=== PATIENT | female | born 1955 | race Caucasian/White ===

== ENCOUNTER 2016-08-31 18:07 | Emergency (ER) | payer SELFPAY ==
[~2016-08-31] VITALS: Ht 170.2 cm; Wt 63.0 kg
[2016-08-31] MEDS ORDERED: DIAZ2 PO (18:25)
[2016-08-31] MEDS ORDERED: ACET-2247 PO (18:25)
[2016-08-31] MEDS ORDERED: HYDR-309 PO (18:25)
[2016-08-31] MEDS ORDERED: QUET25TA PO (18:25)
[2016-08-31 18:27] LABS: GLUCOSE,POINT OF CARE 118 MG/DL (70-110)
[2016-08-31] MEDS ORDERED: FLUMAZENIL 0.1 MG/ML 5 ML VIAL IVP ONE (18:30)
[2016-08-31 18:44] LABS: BASOPHILS # (AUTO) 0.04 K/uL (0.00-0.20); BASOPHILS % (AUTO) 0.3 % (0.0-2.0); EOSINOPHILS # (AUTO) 0.11 K/uL (0.00-0.70); EOSINOPHILS % (AUTO) 0.88 % (1.0-6.0); HEMATOCRIT 35.9 % (36-46); HEMOGLOBIN 12.1 g/dL (12.0-16.0); LYMPHOCYTES # (AUTO) 0.8 K/uL (1.0-4.8); LYMPHOCYTES % (AUTO) 6.5 % (22.0-44.0); MEAN CORPUSCULAR HGB CONC 33.6 G/dL (31.0-37.0); MEAN CORPUSCULAR VOLUME 92 fL (80-100); MONOCYTES # (AUTO) 0.4 K/uL (0.1-1.0); MONOCYTES % (AUTO) 2.9 % (2.0-9.0); NEUTROPHILS # (AUTO) 11.4 K/uL (1.8-7.7); PLATELET COUNT (AUTO) 214 K/uL (150-450); RED BLOOD CELL COUNT(AUTO) 3.89 MIL/uL (4.00-5.20); RED CELL DISTRIBUTION WIDTH 15.7 % (11.5-14.5); WHITE BLOOD COUNT (AUTO) 12.7 K/uL (4.5-11.0)
[2016-08-31 18:46] LABS: APPEARANCE,URINE CLEAR (CLEAR); GLUCOSE, URINE (UA) NEGATIVE (NEGATIVE); KETONES,URINE NEGATIVE (NEGATIVE); LEUKOCYTE ESTERASE ,URINE NEGATIVE (NEGATIVE); OCCULT BLOOD,URINE NEGATIVE (NEGATIVE); PROTEIN,URINE NEGATIVE (NEGATIVE)
[2016-08-31 18:50] LABS: NEUTROPHILS % (AUTO) 89.5 % (40.0-70.0)
[2016-08-31 18:50] LABS: ADD UA MICROSCOPIC NO
[2016-08-31 18:53] LABS: SALICYLATE 3.5 mg/dL (2.8-20.0)
[2016-08-31 18:54] LABS: ANION GAP 9 mmol/L (8-16); CALCIUM, TOTAL 8.1 mg/dL (8.8-10.5); CARBON DIOXIDE 28 mmol/L (22-29); CHLORIDE 104 mmol/L (98-107); CREATININE 0.85 mg/dL (0.60-1.30); GLOMERULAR FILTR. RATE CALC > 60 mL/min (>60); SODIUM SERUM 141 mmol/L (136-145); UREA NITROGEN, BLOOD 20 mg/dL (7-18)
[2016-08-31 19:02] LABS: AMMONIA 13 umol/L (11-32); LACTIC ACID 1.1 mmol/L (0.4-2.0)
[2016-08-31 19:03] LABS: TROPONIN I < 0.02 ng/mL (0.00-0.05)
[2016-08-31 19:05] LABS: B-TYPE NATRIURETIC PEPTIDE 30 pg/mL (0-100)
[2016-08-31 19:08] LABS: RBC MORPHOLOGY COMMENT ABNORMAL RBC MORPH
[2016-08-31 19:09] LABS: ACETAMINOPHEN < 2 mcg/mL (10-30); ALANINE AMINOTRANSFERASE 71 U/L (12-78); ALBUMIN 3.7 g/dL (3.4-5.0); ASPARTATE AMINOTRANSFERASE 30 U/L (15-37); BILIRUBIN,TOTAL 0.2 mg/dL (0.1-1.0); CREATINE KINASE, TOTAL 73 U/L (26-192)
[2016-08-31] MEDS ORDERED: ACETAMINOPHEN 325 MG TABLET PO PRN (21:30)
[2016-08-31 22:35] VITALS: BP 144/77
[2016-09-01] MEDS ORDERED: HEPARIN SODIUM,PORCINE 5,000 UNITS/ML VIAL SQ SCH
[2016-09-01] MEDS ORDERED: PANTOPRAZOLE SODIUM 40 MG DR TABLET PO SCH (09:00)
== END 2016-08-31 23:33 | disposition home or self-care (01) ==
LOC: EDBD 18:10 → EMS 18:10
DX: R41.82 Altered mental status, unspecified (principal); F13.20 Sedative, hypnotic or anxiolytic dependence, uncomplicated
CPT/HCPCS: 36415; 71010; 80053; 80307; 81003; 82140; 82550; 82962; 83605; 83880; 84484; 85025; 93005; 96374; 99291; G0480; G0481; J3490

== ENCOUNTER 2016-10-03 09:25 | Emergency (ER) | payer MEDICARE ==
[~2016-10-03] VITALS: Ht 165.1 cm; Wt 51.8 kg
[~2016-10-03 09:25] MED LIST: ACET-2247 PO; DIAZ2 PO; HYDR-309 PO; QUET25TA PO
[2016-10-03] MEDS ORDERED: DIPH25CA85 PO (09:45)
[2016-10-03 10:07] VITALS: BP 144/68
== END 2016-10-03 10:23 | disposition home or self-care (01) ==
LOC: EMS 09:26
DX: G47.00 Insomnia, unspecified (principal); F41.9 Anxiety disorder, unspecified; F32.9 Major depressive disorder, single episode, unspecified
CPT/HCPCS: 99283; 99284

== ENCOUNTER 2016-11-06 20:57 | Inpatient (IN) | payer MEDICARE ==
[~2016-11-06] VITALS: Ht 165.1 cm; Wt 56.9 kg
[~2016-11-06 20:57] MED LIST changes: +DIPH25CA85 PO
[2016-11-06] MEDS ORDERED: SODIUM CHLORIDE 0.9% 1,000 ML IV ONE (21:30)
[2016-11-06 21:32] LABS: BASOPHILS # (AUTO) 0.09 K/uL (0.00-0.20); BASOPHILS % (AUTO) 1.3 % (0.0-2.0); EOSINOPHILS # (AUTO) 0.23 K/uL (0.00-0.70); HEMATOCRIT 38.8 % (36-46); HEMOGLOBIN 12.8 g/dL (12.0-16.0); LYMPHOCYTES # (AUTO) 1.6 K/uL (1.0-4.8); LYMPHOCYTES % (AUTO) 21.8 % (22.0-44.0); MEAN CORPUSCULAR HEMOGLOBIN 30.8 pg (26.0-34.0); MEAN CORPUSCULAR HGB CONC 32.8 G/dL (31.0-37.0); MEAN CORPUSCULAR VOLUME 94 fL (80-100); MONOCYTES # (AUTO) 0.5 K/uL (0.1-1.0); MONOCYTES % (AUTO) 6.7 % (2.0-9.0); NEUTROPHILS # (AUTO) 4.8 K/uL (1.8-7.7); PLATELET COUNT (AUTO) 296 K/uL (150-450); RED BLOOD CELL COUNT(AUTO) 4.14 MIL/uL (4.00-5.20); RED CELL DISTRIBUTION WIDTH 14.9 % (11.5-14.5); WHITE BLOOD COUNT (AUTO) 7.2 K/uL (4.5-11.0)
[2016-11-06 21:33] LABS: ANION GAP 7 mmol/L (8-16); CALCIUM, TOTAL 9.2 mg/dL (8.8-10.5); CARBON DIOXIDE 30 mmol/L (22-29); CHLORIDE 100 mmol/L (98-107); CREATININE 1.11 mg/dL (0.60-1.30); GLOMERULAR FILTR. RATE CALC 50 mL/min (>60); SODIUM SERUM 137 mmol/L (136-145); UREA NITROGEN, BLOOD 18 mg/dL (7-18)
[2016-11-06 21:40] LABS: ALANINE AMINOTRANSFERASE 24 U/L (12-78); ALBUMIN 3.8 g/dL (3.4-5.0); ASPARTATE AMINOTRANSFERASE 13 U/L (15-37); BILIRUBIN,TOTAL 0.4 mg/dL (0.1-1.0)
[2016-11-06 21:44] LABS: SALICYLATE 3.4 mg/dL (2.8-20.0)
[2016-11-06 21:50] LABS: ACETAMINOPHEN < 2 mcg/mL (10-30)
[2016-11-06] MEDS ORDERED: GABA-533 PO (22:08)
[2016-11-06] MEDS ORDERED: AMIT25TA9 PO (22:08)
[2016-11-06] MEDS ORDERED: MELA3 PO (22:08)
[2016-11-06] MEDS ORDERED: QUET25TA PO (22:08)
[2016-11-06] MEDS ORDERED: QUET100T PO (22:08)
[2016-11-06] MEDS ORDERED: ALBU8HFA4 IH (22:08)
[2016-11-07] VITALS (7 sets, daily range): BP systolic 107–129; BP diastolic 50–77
[2016-11-07 00:06] LABS: CREATINE KINASE, TOTAL 65 U/L (26-192)
[2016-11-07] MEDS ORDERED: 0.9% SODIUM CHLORIDE 10 ML SYRINGE IVP PRN (00:45)
[2016-11-07] MEDS ORDERED: ONDANSETRON HCL 4 MG/2 ML VIAL IVP PRN ×2 (00:45→11:15)
[2016-11-07] MEDS ORDERED: ACETAMINOPHEN 325 MG TABLET PO PRN ×2 (00:45→11:15)
[2016-11-07] MEDS ORDERED: MORPHINE SULFATE 2 MG/ML SYRINGE IVP PRN (11:15)
[2016-11-07] MEDS ORDERED: IPRATROPIUM BROMIDE 0.5 MG/2.5 ML NEB SOLUTION NEB PRN (11:15)
[2016-11-07] MEDS ORDERED: MAGNESIUM HYDROXIDE SUSPENSION 30 ML UDCUP PO PRN (11:15)
[2016-11-07] MEDS ORDERED: ZOLPIDEM TARTRATE 5 MG TABLET PO PRN (11:15)
[2016-11-07] MEDS ORDERED: ALBUTEROL SULFATE 2.5 MG/0.5 ML NEB SOLUTION NEB PRN (11:15)
[2016-11-07] MEDS ORDERED: HYDROCODONE/ACETAMINOPHEN 5-325 MG TABLET PO PRN (11:15)
[2016-11-07] MEDS ORDERED: BISACODYL 10 MG RECTAL RECTAL SUPPOSITORY PR PRN (11:15)
[2016-11-07] MEDS: HEPARIN SODIUM,PORCINE 5,000 UNITS/ML VIAL SQ SCH (16:00)
[2016-11-07] MEDS ORDERED: TraZODone HCL 100 MG TABLET PO SCH (21:00)
[2016-11-07] MEDS: DULoxetine HCL 30 MG CAPSULE PO SCH (21:26)
[2016-11-08 00:01] VITALS: BP 112/62
[2016-11-08] MEDS: DOCUSATE SODIUM 100 MG CAPSULE PO SCH ×2 (00:59→08:46)
[2016-11-08 04:01] VITALS: BP 108/61
[2016-11-08 07:41] VITALS: BP 125/64
[2016-11-08] MEDS: HEPARIN SODIUM,PORCINE 5,000 UNITS/ML VIAL SQ SCH ×3 (08:00→16:00)
[2016-11-08] MEDS: DULoxetine HCL 30 MG CAPSULE PO SCH (08:46)
[2016-11-08] MEDS ORDERED: PANTOPRAZOLE SODIUM 40 MG/VIAL IVP SCH (09:00)
[2016-11-08 11:34] VITALS: BP 104/57
[2016-11-08 15:24] VITALS: BP 106/58
[2016-11-08] MEDS ORDERED: DULO30CA2 PO (15:46)
[2016-11-08] MEDS ORDERED: TRAZ-147 PO (15:46)
[2016-11-08] MEDS ORDERED: ACET-2247 PO (15:47)
[2016-11-08] MEDS ORDERED: A20IH1 NEB (15:48)
[2016-11-08] MEDS ORDERED: DULoxetine HCL 30 MG CAPSULE PO SCH (21:00)
== END 2016-11-08 17:34 | DRG 917 ==
LOC: EMS 20:58 → 5N 11-07 00:55
PROVIDERS: ADMIT Hospitalist; ATTEND Hospitalist
DX: T42.6X2A Poisoning by other antiepileptic and sedative-hypnotic drugs, intentional self-harm, initial encounter (principal); G92 Toxic encephalopathy; F33.2 Major depressive disorder, recurrent severe without psychotic features; F11.20 Opioid dependence, uncomplicated; F41.9 Anxiety disorder, unspecified; F60.3 Borderline personality disorder; M79.7 Fibromyalgia; R45.84 Anhedonia; Z88.2 Allergy status to sulfonamides; Y92.89 Other specified places as the place of occurrence of the external cause; Z90.49 Acquired absence of other specified parts of digestive tract; Z79.899 Other long term (current) drug therapy; Y93.89 Activity, other specified; Y99.8 Other external cause status; Z53.29 Procedure and treatment not carried out because of patient's decision for other reasons
CPT/HCPCS: 51702; 87081; 93005; 96360; 96361; 99285; C9113; G0480; G0481; J1644; J7030

== ENCOUNTER 2016-11-08 19:51 | Inpatient (IN) | payer MEDICARE, OTHER ==
[~2016-11-08] VITALS: Ht 165.1 cm; Wt 53.4 kg
[~2016-11-08 19:51] MED LIST changes: +A20IH1 NEB; +ALBU8HFA4 IH; +AMIT25TA9 PO; +DULO30CA2 PO; +GABA-533 PO; +MELA3 PO; +QUET100T PO; +TRAZ-147 PO
[2016-11-08 20:49] VITALS: BP 108/64
[2016-11-08] MEDS ORDERED: DULoxetine HCL 30 MG CAPSULE PO SCH (21:00)
[2016-11-08] MEDS: ZOLPIDEM TARTRATE 5 MG TABLET PO PRN (21:23)
[2016-11-08] MEDS: TraZODone HCL 100 MG TABLET PO SCH (21:23)
[2016-11-09 06:00] VITALS: BP 114/69
[2016-11-09] MEDS: DULoxetine HCL 60 MG CAPSULE PO SCH ×2 (08:14→16:47)
[2016-11-09 08:28] VITALS: BP 142/58
[2016-11-09] MEDS: HALOPERIDOL 5 MG TABLET PO PRN ×3 (10:49→19:03)
[2016-11-09] MEDS ORDERED: IBUPROFEN 600 MG TABLET PO PRN (11:00)
[2016-11-09 11:06] VITALS: BP 103/70
[2016-11-09] MEDS: ACETAMINOPHEN 325 MG TABLET PO PRN ×2 (11:06→19:01)
[2016-11-09 12:06] VITALS: BP 106/66
[2016-11-09 16:00] VITALS: BP 118/70
[2016-11-09 19:00] VITALS: BP 115/67
[2016-11-09] MEDS: TraZODone HCL 100 MG TABLET PO SCH (20:10)
[2016-11-10 07:50] VITALS: BP 115/71
[2016-11-10] MEDS: HALOPERIDOL 5 MG TABLET PO PRN ×3 (07:50→15:53)
[2016-11-10] MEDS: DULoxetine HCL 60 MG CAPSULE PO SCH ×2 (08:45→17:02)
[2016-11-10] MEDS: HydrOXYzine PAMOATE 25 MG CAPSULE PO PRN ×3 (08:54→20:18)
[2016-11-10 16:17] VITALS: BP 125/77
[2016-11-10] MEDS: TraZODone HCL 100 MG TABLET PO SCH (20:17)
[2016-11-10] MEDS: ZOLPIDEM TARTRATE 5 MG TABLET PO PRN (21:23)
[2016-11-11 08:10] VITALS: BP 119/76
[2016-11-11] MEDS: DULoxetine HCL 60 MG CAPSULE PO SCH ×2 (08:20→15:57)
[2016-11-11] MEDS: HALOPERIDOL 5 MG TABLET PO PRN ×2 (08:21→12:28)
[2016-11-11 16:12] VITALS: BP 117/73
[2016-11-11] MEDS ORDERED: DULO60CA44 PO (20:38)
[2016-11-11] MEDS: TraZODone HCL 100 MG TABLET PO SCH (20:42)
[2016-11-11] MEDS: HydrOXYzine PAMOATE 25 MG CAPSULE PO PRN (20:49)
[2016-11-11] MEDS: ZOLPIDEM TARTRATE 5 MG TABLET PO PRN (21:23)
[2016-11-12] MEDS: HALOPERIDOL 5 MG TABLET PO PRN ×2 (08:01→19:36)
[2016-11-12] MEDS: HydrOXYzine PAMOATE 25 MG CAPSULE PO PRN ×2 (08:01→19:36)
[2016-11-12] MEDS: DULoxetine HCL 60 MG CAPSULE PO SCH ×2 (08:01→16:12)
[2016-11-12 08:10] VITALS: BP 120/76
[2016-11-12 18:01] VITALS: BP 110/67
[2016-11-12] MEDS: TraZODone HCL 100 MG TABLET PO SCH (20:02)
[2016-11-13 08:43] VITALS: BP 120/74
[2016-11-13] MEDS: DULoxetine HCL 60 MG CAPSULE PO SCH (08:50)
== END 2016-11-13 09:15 | disposition home or self-care (01) | DRG 885 ==
LOC: 3EX 20:48
PROVIDERS: ADMIT Psychiatry & Neurology Psychiatry; ATTEND Psychiatry & Neurology Psychiatry
PROC: HZ37ZZZ Individual Counseling for Substance Abuse Treatment, Motivational Enhancement (ICD-10-PCS; principal; 2016-11-08)
PROC: HZ2ZZZZ Detoxification Services for Substance Abuse Treatment (ICD-10-PCS; 2016-11-08)
DX: F33.2 Major depressive disorder, recurrent severe without psychotic features (principal); F11.20 Opioid dependence, uncomplicated; F19.10 Other psychoactive substance abuse, uncomplicated; M79.7 Fibromyalgia; M19.90 Unspecified osteoarthritis, unspecified site; R45.87 Impulsiveness; F41.9 Anxiety disorder, unspecified; Z88.2 Allergy status to sulfonamides; Z90.710 Acquired absence of both cervix and uterus
CPT/HCPCS: 87081

== ENCOUNTER 2016-12-08 01:16 | Emergency (ER) | payer MEDICARE ==
[~2016-12-08] VITALS: Ht 165.1 cm; Wt 54.5 kg
[~2016-12-08 01:16] MED LIST changes: -A20IH1 NEB; -ACET-2247 PO; -ALBU8HFA4 IH; -AMIT25TA9 PO; -DIAZ2 PO; -DIPH25CA85 PO; -DULO30CA2 PO; +DULO60CA44 PO; -GABA-533 PO; -HYDR-309 PO; -MELA3 PO; -QUET100T PO; -QUET25TA PO
[2016-12-08] MEDS ORDERED: DIAZ5 PO (01:24)
[2016-12-08] MEDS ORDERED: GABA-533 PO (01:24)
[2016-12-08] MEDS ORDERED: QUET200T PO (01:24)
[2016-12-08] MEDS ORDERED: DIAZ10 PO (01:29)
[2016-12-08] MEDS ORDERED: AMIT25TA9 PO (01:29)
[2016-12-08 01:32] LABS: GLUCOSE,POINT OF CARE 144 MG/DL (70-110)
[2016-12-08 02:09] LABS: BASOPHILS % (AUTO) 0.2 % (0.0-2.0); EOSINOPHILS % (AUTO) 1.4 % (1.0-6.0); HEMATOCRIT 35.7 % (36-46); HEMOGLOBIN 12.1 g/dL (12.0-16.0); LYMPHOCYTES # (AUTO) 1.1 K/uL (1.0-4.8); LYMPHOCYTES % (AUTO) 10.7 % (22.0-44.0); MEAN CORPUSCULAR HEMOGLOBIN 31.6 pg (26.0-34.0); MEAN CORPUSCULAR HGB CONC 33.8 G/dL (31.0-37.0); MEAN CORPUSCULAR VOLUME 93 fL (80-100); MONOCYTES # (AUTO) 0.5 K/uL (0.1-1.0); MONOCYTES % (AUTO) 4.9 % (2.0-9.0); NEUTROPHILS # (AUTO) 8.5 K/uL (1.8-7.7); NEUTROPHILS % (AUTO) 82.8 % (40.0-70.0); PLATELET COUNT (AUTO) 212 K/uL (150-450); RED BLOOD CELL COUNT(AUTO) 3.83 MIL/uL (4.00-5.20); RED CELL DISTRIBUTION WIDTH 14.3 % (11.5-14.5); WHITE BLOOD COUNT (AUTO) 10.3 K/uL (4.5-11.0)
[2016-12-08 02:18] LABS: ANION GAP 9 mmol/L (8-16); CARBON DIOXIDE 26 mmol/L (22-29); CHLORIDE 102 mmol/L (98-107); CREATININE 1.03 mg/dL (0.60-1.30); GLOMERULAR FILTR. RATE CALC 55 mL/min (>60); POTASSIUM 3.6 mmol/L (3.5-5.1); SALICYLATE 4.1 mg/dL (2.8-20.0); SODIUM SERUM 137 mmol/L (136-145); UREA NITROGEN, BLOOD 19 mg/dL (7-18)
[2016-12-08 02:21] LABS: PROTHROMBIN TIME 10.3 SEC (9.4-11.6)
[2016-12-08 02:25] LABS: ALANINE AMINOTRANSFERASE 29 U/L (12-78); ALBUMIN 3.6 g/dL (3.4-5.0); ASPARTATE AMINOTRANSFERASE 16 U/L (15-37); BILIRUBIN,TOTAL 0.1 mg/dL (0.1-1.0); CREATINE KINASE, TOTAL 52 U/L (26-192); TOTAL PROTEIN, SERUM 6.6 g/dL (6.4-8.2)
[2016-12-08 02:30] LABS: ACETAMINOPHEN < 2 mcg/mL (10-30)
[2016-12-08] MEDS ORDERED: SODIUM CHLORIDE 0.9% 1,000 ML IV ONE (02:30)
[2016-12-08 03:08] LABS: APPEARANCE,URINE CLEAR (CLEAR); GLUCOSE, URINE (UA) NEGATIVE (NEGATIVE); KETONES,URINE NEGATIVE (NEGATIVE); LEUKOCYTE ESTERASE ,URINE NEGATIVE (NEGATIVE); OCCULT BLOOD,URINE NEGATIVE (NEGATIVE); PROTEIN,URINE NEGATIVE (NEGATIVE)
[2016-12-08 03:09] LABS: ADD UA MICROSCOPIC NO
[2016-12-08 10:50] VITALS: BP 106/56
== END 2016-12-08 11:10 | disposition home or self-care (01) ==
LOC: EMS 01:17
DX: T42.6X1A Poisoning by other antiepileptic and sedative-hypnotic drugs, accidental (unintentional), initial encounter (principal); T43.011A Poisoning by tricyclic antidepressants, accidental (unintentional), initial encounter; T43.211A Poisoning by selective serotonin and norepinephrine reuptake inhibitors, accidental (unintentional), initial encounter; Y92.89 Other specified places as the place of occurrence of the external cause; F17.200 Nicotine dependence, unspecified, uncomplicated; Z88.2 Allergy status to sulfonamides
CPT/HCPCS: 36415; 51702; 70450; 71010; 80053; 80307; 81003; 82550; 82962; 84484; 85025; 85610; 85730; 93005; 99285; G0480; J7030; G0481

== ENCOUNTER 2016-12-12 14:47 | Inpatient (IN) | payer MEDICARE, OTHER ==
[~2016-12-12] VITALS: Ht 162.6 cm; Wt 57.6 kg
[~2016-12-12 14:47] MED LIST changes: +A20IH1 NEB; +ACET-2247 PO; +ALBU8HFA4 IH; +AMIT25TA9 PO; +DIAZ10 PO; +DIAZ2 PO; +DIAZ5 PO; +DIPH25CA85 PO; +DULO30CA2 PO; +GABA-533 PO; +HYDR-309 PO; +MELA3 PO; +QUET100T PO; +QUET200T PO; +QUET25TA PO
[2016-12-12] MEDS ORDERED: ZOLPIDEM TARTRATE 10 MG TABLET PO PRN (16:45)
[2016-12-12] MEDS ORDERED: HYDROCORTISONE 1% 30 GM CREAM TP PRN (18:45)
[2016-12-12] MEDS ORDERED: DOCUSATE SODIUM 100 MG CAPSULE PO PRN (18:45)
[2016-12-12 19:17] VITALS: BP 130/71
[2016-12-12] MEDS: ACETAMINOPHEN 325 MG TABLET PO PRN (19:17)
[2016-12-12] MEDS: LORazepam 2 MG TABLET PO PRN (19:17)
[2016-12-12] MEDS: AMITRIPTYLINE HCL 50 MG TABLET PO SCH (20:47)
[2016-12-12] MEDS: QUEtiapine FUMARATE 200 MG TABLET PO SCH (20:48)
[2016-12-13 08:00] VITALS: BP 148/87
[2016-12-13] MEDS: IBUPROFEN 400 MG TABLET PO PRN ×2 (09:07→18:49)
[2016-12-13 09:08] VITALS: BP_SYST 148; BP_SYST 150; BP_DIAS 80; BP_DIAS 87
[2016-12-13 16:02] VITALS: BP 102/57
[2016-12-13] MEDS: BENZOCAINE 10% 7 GM GEL TP PRN (17:29)
[2016-12-13] MEDS: AMITRIPTYLINE HCL 50 MG TABLET PO SCH (20:18)
[2016-12-13] MEDS: QUEtiapine FUMARATE 200 MG TABLET PO SCH (20:18)
[2016-12-14 08:05] VITALS: BP 109/72
[2016-12-14] MEDS: BENZOCAINE 10% 7 GM GEL TP PRN ×2 (08:05→20:09)
[2016-12-14] MEDS: IBUPROFEN 400 MG TABLET PO PRN ×2 (08:05→16:58)
[2016-12-14 12:47] VITALS: BP 111/69
[2016-12-14] MEDS: LORazepam 2 MG TABLET PO PRN (12:47)
[2016-12-14] MEDS: ACETAMINOPHEN 325 MG TABLET PO PRN ×2 (12:47→20:15)
[2016-12-14 16:58] VITALS: BP 102/54
[2016-12-14] MEDS: AMITRIPTYLINE HCL 50 MG TABLET PO SCH (20:02)
[2016-12-14] MEDS: QUEtiapine FUMARATE 200 MG TABLET PO SCH (20:02)
[2016-12-15 09:20] VITALS: BP 137/68
[2016-12-15] MEDS: IBUPROFEN 400 MG TABLET PO PRN ×2 (09:20→18:30)
[2016-12-15 17:00] VITALS: BP 119/66
[2016-12-15 18:30] VITALS: BP 120/65
[2016-12-15] MEDS: LORazepam 2 MG TABLET PO PRN (18:32)
[2016-12-15] MEDS: BENZOCAINE 10% 7 GM GEL TP PRN (18:34)
[2016-12-15 19:30] VITALS: BP 121/66
[2016-12-15] MEDS: AMITRIPTYLINE HCL 50 MG TABLET PO SCH (20:18)
[2016-12-15] MEDS: QUEtiapine FUMARATE 200 MG TABLET PO SCH (20:19)
[2016-12-16 08:30] VITALS: BP 96/55
[2016-12-16] MEDS: IBUPROFEN 400 MG TABLET PO PRN (09:22)
[2016-12-16] MEDS: LORazepam 2 MG TABLET PO PRN ×2 (09:50→16:30)
[2016-12-16 17:00] VITALS: BP 128/60
[2016-12-16] MEDS: QUEtiapine FUMARATE 200 MG TABLET PO SCH (20:35)
[2016-12-16] MEDS: AMITRIPTYLINE HCL 50 MG TABLET PO SCH (20:35)
[2016-12-17 05:43] VITALS: BP 111/62
[2016-12-17] MEDS: IBUPROFEN 400 MG TABLET PO PRN ×2 (05:47→14:48)
[2016-12-17] MEDS: LORazepam 2 MG TABLET PO PRN ×2 (05:47→14:48)
[2016-12-17 09:33] VITALS: BP 112/72
[2016-12-17 16:16] VITALS: BP 128/76
[2016-12-17] MEDS: QUEtiapine FUMARATE 200 MG TABLET PO SCH (20:11)
[2016-12-17] MEDS: AMITRIPTYLINE HCL 50 MG TABLET PO SCH (20:12)
[2016-12-18 08:34] VITALS: BP 111/62
[2016-12-18] MEDS: LORazepam 2 MG TABLET PO PRN ×2 (08:34→14:03)
[2016-12-18] MEDS: IBUPROFEN 400 MG TABLET PO PRN ×2 (08:35→23:01)
[2016-12-18 18:27] VITALS: BP 127/66
[2016-12-18] MEDS: AMITRIPTYLINE HCL 50 MG TABLET PO SCH (20:16)
[2016-12-18] MEDS: QUEtiapine FUMARATE 200 MG TABLET PO SCH (20:16)
[2016-12-19 07:43] VITALS: BP 109/73
[2016-12-19] MEDS: IBUPROFEN 400 MG TABLET PO PRN ×2 (07:49→18:44)
[2016-12-19] MEDS: LORazepam 2 MG TABLET PO PRN ×3 (07:49→18:44)
[2016-12-19 08:13] VITALS: BP 109/73
[2016-12-19 16:30] VITALS: BP 119/66
[2016-12-19 18:44] VITALS: BP 115/69
[2016-12-19] MEDS: QUEtiapine FUMARATE 200 MG TABLET PO SCH (20:04)
[2016-12-19] MEDS: AMITRIPTYLINE HCL 50 MG TABLET PO SCH (20:04)
[2016-12-20 08:49] VITALS: BP 122/75
[2016-12-20] MEDS: IBUPROFEN 400 MG TABLET PO PRN ×2 (08:54→14:55)
[2016-12-20] MEDS: LORazepam 2 MG TABLET PO PRN ×3 (08:55→20:07)
[2016-12-20 14:57] VITALS: BP 129/67
[2016-12-20 17:22] VITALS: BP 98/67
[2016-12-20] MEDS: QUEtiapine FUMARATE 200 MG TABLET PO SCH (20:08)
[2016-12-20] MEDS: AMITRIPTYLINE HCL 50 MG TABLET PO SCH (20:08)
[2016-12-21 08:40] VITALS: BP 101/56
[2016-12-21] MEDS: LORazepam 2 MG TABLET PO PRN ×2 (09:40→17:02)
[2016-12-21] MEDS: IBUPROFEN 400 MG TABLET PO PRN ×2 (09:41→17:02)
[2016-12-21 17:02] VITALS: BP 118/64
[2016-12-21] MEDS: AMITRIPTYLINE HCL 50 MG TABLET PO SCH (19:56)
[2016-12-21] MEDS: QUEtiapine FUMARATE 200 MG TABLET PO SCH (19:56)
[2016-12-22 08:00] VITALS: BP 102/61
[2016-12-22] MEDS: LORazepam 2 MG TABLET PO PRN (09:19)
[2016-12-22] MEDS ORDERED: AMIT50TA3 PO (11:40)
[2016-12-22 16:15] VITALS: BP 128/60
== END 2016-12-22 18:20 | disposition home or self-care (01) | DRG 885 ==
LOC: 3EX 17:30
DX: F25.1 Schizoaffective disorder, depressive type (principal); R45.851 Suicidal ideations; M19.90 Unspecified osteoarthritis, unspecified site; F43.12 Post-traumatic stress disorder, chronic; M79.7 Fibromyalgia; F41.9 Anxiety disorder, unspecified; F32.9 Major depressive disorder, single episode, unspecified; Z88.2 Allergy status to sulfonamides; Z90.710 Acquired absence of both cervix and uterus